=== PATIENT | female | born 1990 ===

== ENCOUNTER 2021-12-12 12:29 | Outpatient (CLI) | payer OTHER ==
--- NOTE | 2021-12-12 16:56 | MRI Report ---
PROCEDURE: Thoracic Spine W/O INDICATIONS: COMPRESSION FX OF THORACIC SPINE TECHNIQUE: Noncontrast sagittal T1 spine echo and T2 fast spin echo, sagittal STIR, axial T1 and T2 fast spin ec ho through the thoracic spine. COMPARISON: None. FINDINGS: Image quality: Motion artifact is noted. Alignment and Curvature: Mild dextroconvex scoliotic curvature is seen. No significant AP alignmen t abnormality can be seen. Bone Marrow: Marrow is of normal overall signal. No acute vertebral body compression fractures. Mi ld anterior wedge deformities can be seen at T6 and T7. No acute features are seen. Spinal Cord: Visualized spinal cord is normal in size and signal. Paraspinous Soft Tissues: No paravertebral masses. Miscellaneous: On axial images, central canal and foramina appear widely patent at all scanned level s. IMPRESSION: No acute fractures are seen. Remote mild anterior wedge deformities are seen at T6 and T7. Mild dextroconvex scoliotic curvature is seen. Reviewed by: Carlin Garcia MD on 12/12/2021 3:54 PM CAROL Approved by: Carlin Garcia MD on 12/12/2021 3:54 PM CAROL Station ID: [id number]
== END 2021-12-12 12:30 | disposition home or self-care (01) ==
LOC: DI 12:29
PROVIDERS: ATTEND Student in an Organized Health Care Education/Training Program
DX: S22.000A Wedge compression fracture of unspecified thoracic vertebra, initial encounter for closed fracture (principal)